=== PATIENT | male | born 1955 | race Caucasian/White ===

== ENCOUNTER 2019-09-27 10:48 | Inpatient (IN) | payer MEDICARE, MEDICAID ==
[2019-09-27] VITALS (7 sets, daily range): BP systolic 129–145; BP diastolic 72–81
[~2019-09-27] VITALS: Ht 162.6 cm; Wt 70.0 kg
[2019-09-27] MEDS ORDERED: MELA5TAB3 PO (11:07)
[2019-09-27] MEDS ORDERED: DOCU100C33 PO (11:07)
[2019-09-27] MEDS ORDERED: TOPI25 PO (11:07)
[2019-09-27] MEDS ORDERED: FOLI1TAB85 PO (11:07)
[2019-09-27] MEDS ORDERED: TEMA15CA PO (11:07)
[2019-09-27] MEDS ORDERED: CIPR500S5 PO (11:07)
[2019-09-27] MEDS ORDERED: AMOX1TAB15 PO (11:07)
[2019-09-27 11:46] LABS: BASOPHILS % (AUTO) 0.8 % (0.0-2.0); MEAN CORPUSCULAR HGB CONC 32.7 G/dL (31.0-37.0); MEAN CORPUSCULAR VOLUME 86 fL (80-100); MONOCYTES # (AUTO) 0.5 K/uL (0.1-1.0); MONOCYTES % (AUTO) 5.2 % (2.0-9.0); NEUTROPHILS # (AUTO) 7.8 K/uL (1.8-7.7); PLATELET COUNT (AUTO) 380 K/uL (150-450); RED BLOOD CELL COUNT(AUTO) 2.17 MIL/uL (4.50-5.90); RED CELL DISTRIBUTION WIDTH 15.5 % (11.5-14.5)
[2019-09-27 11:47] LABS: HEMOGLOBIN 6.1 g/dL (13.5-17.5)
[2019-09-27 11:48] LABS: HEMATOCRIT 18.5 % (41-53)
[2019-09-27 12:52] LABS: POTASSIUM 4.7 mmol/L (3.5-5.1)
[2019-09-27 12:53] LABS: ALBUMIN 1.8 g/dL (3.4-5.0); BILIRUBIN,TOTAL 0.3 mg/dL (0.1-1.0); CALCIUM, TOTAL 7.8 mg/dL (8.8-10.5); TOTAL PROTEIN, SERUM 7.6 g/dL (6.4-8.2)
[2019-09-27 13:13] LABS: CREATININE 9.54 mg/dL (0.60-1.30)
[2019-09-27] MEDS ORDERED: ONDANSETRON HCL 4 MG/2 ML VIAL IVP PRN ×2 (13:30→21:45)
[2019-09-27] MEDS ORDERED: 0.9% SODIUM CHLORIDE 10 ML SYRINGE IVP PRN ×2 (13:30→21:45)
[2019-09-27] MEDS ORDERED: ACETAMINOPHEN 325 MG TABLET PO PRN (13:30)
[2019-09-27] MEDS ORDERED: ZOLPIDEM TARTRATE 5 MG TABLET PO PRN (21:45)
[2019-09-27] MEDS: MELATONIN 5 MG TABLET PO SCH (22:35)
[2019-09-27] MEDS: TEMAZEPAM 15 MG CAPSULE PO SCH (22:35)
[2019-09-27] MEDS: ACETAMINOPHEN 325 MG TABLET PO PRN (22:36)
[2019-09-28] VITALS (7 sets, daily range): BP systolic 121–141; BP diastolic 61–79
[2019-09-28 07:10] LABS: BASOPHILS % (AUTO) 0.8 % (0.0-2.0); EOSINOPHILS % (AUTO) 3.2 % (1.0-6.0); HEMOGLOBIN 7.5 g/dL (13.5-17.5); LYMPHOCYTES # (AUTO) 1.2 K/uL (1.0-4.8); LYMPHOCYTES % (AUTO) 14.6 % (22.0-44.0); MEAN CORPUSCULAR HGB CONC 32.5 G/dL (31.0-37.0); MEAN CORPUSCULAR VOLUME 86 fL (80-100); MONOCYTES # (AUTO) 0.5 K/uL (0.1-1.0); MONOCYTES % (AUTO) 5.8 % (2.0-9.0); NEUTROPHILS # (AUTO) 6.4 K/uL (1.8-7.7); NEUTROPHILS % (AUTO) 75.6 % (40.0-70.0); PLATELET COUNT (AUTO) 373 K/uL (150-450); RED BLOOD CELL COUNT(AUTO) 2.68 MIL/uL (4.50-5.90); RED CELL DISTRIBUTION WIDTH 15.5 % (11.5-14.5)
[2019-09-28 07:42] LABS: ALBUMIN 1.7 g/dL (3.4-5.0); BILIRUBIN,TOTAL 0.4 mg/dL (0.1-1.0); CREATININE 11.1 mg/dL (0.60-1.30); MAGNESIUM 2.4 mg/dL (1.80-2.40); POTASSIUM 5.3 mmol/L (3.5-5.1); TOTAL PROTEIN, SERUM 7.4 g/dL (6.4-8.2)
[2019-09-28] MEDS: PANTOPRAZOLE SODIUM 40 MG DR TABLET PO SCH (08:49)
[2019-09-28] MEDS: VITAMIN B COMP/VIT C/FOLIC ACID CAPSULE PO SCH (08:49)
[2019-09-28] MEDS: TOPIRAMATE 25 MG TABLET PO SCH (08:49)
[2019-09-28] MEDS ORDERED: CIPR-278 PO (11:46)
[2019-09-28] MEDS: TEMAZEPAM 15 MG CAPSULE PO SCH (20:01)
[2019-09-28] MEDS: MELATONIN 5 MG TABLET PO SCH (20:02)
[2019-09-28] MEDS: ACETAMINOPHEN 325 MG TABLET PO PRN (20:03)
[2019-09-29 04:13] VITALS: BP 142/72
[2019-09-29 07:18] VITALS: BP 143/73
[2019-09-29 07:49] LABS: BASOPHILS % (AUTO) 0.9 % (0.0-2.0); EOSINOPHILS % (AUTO) 3.5 % (1.0-6.0); HEMATOCRIT 22.6 % (41-53); HEMOGLOBIN 7.4 g/dL (13.5-17.5); LYMPHOCYTES # (AUTO) 1.6 K/uL (1.0-4.8); LYMPHOCYTES % (AUTO) 16.8 % (22.0-44.0); MEAN CORPUSCULAR HGB CONC 32.9 G/dL (31.0-37.0); MEAN CORPUSCULAR VOLUME 85 fL (80-100); MONOCYTES # (AUTO) 0.5 K/uL (0.1-1.0); MONOCYTES % (AUTO) 5.4 % (2.0-9.0); NEUTROPHILS # (AUTO) 6.8 K/uL (1.8-7.7); NEUTROPHILS % (AUTO) 73.4 % (40.0-70.0); PLATELET COUNT (AUTO) 377 K/uL (150-450); RED BLOOD CELL COUNT(AUTO) 2.65 MIL/uL (4.50-5.90); RED CELL DISTRIBUTION WIDTH 15.2 % (11.5-14.5)
[2019-09-29 08:11] LABS: CALCIUM, TOTAL 7.8 mg/dL (8.8-10.5); CREATININE 13.37 mg/dL (0.60-1.30)
[2019-09-29] MEDS: TOPIRAMATE 25 MG TABLET PO SCH (08:23)
[2019-09-29] MEDS: VITAMIN B COMP/VIT C/FOLIC ACID CAPSULE PO SCH (08:23)
[2019-09-29] MEDS: PANTOPRAZOLE SODIUM 40 MG DR TABLET PO SCH (08:23)
[2019-09-29] MEDS: EPOETIN ALFA 10,000 UNITS/ML VIAL SQ SCH (08:24)
[2019-09-29 08:29] LABS: POTASSIUM 6.1 mmol/L (3.5-5.1)
[2019-09-29 11:06] VITALS: BP 131/68
[2019-09-29] MEDS ORDERED: CALCIUM GLUCONATE 1,000 MG in DEXTROSE 5%-WATER 50 ML IV ONE (11:15)
[2019-09-29] MEDS ORDERED: CALCIUM GLUCONATE 100 MG/ML 10 ML IVP ONE (11:30)
[2019-09-29] MEDS ORDERED: SODIUM CHLORIDE 0.9% 2,000 ML ONE (12:40)
[2019-09-29] MEDS ORDERED: SODIUM CHLORIDE 0.9% 250 ML IV ONE (15:32)
[2019-09-29] MEDS: SOD FERRIC GLUC COMPLX/SUCROSE 125 MG in SODIUM CHLORIDE 0.9% 100 ML IV SCH (17:00)
[2019-09-29] MEDS: ACETAMINOPHEN 325 MG TABLET PO PRN ×2 (17:01→23:33)
[2019-09-29 19:10] VITALS: BP 132/69
[2019-09-29] MEDS: TEMAZEPAM 15 MG CAPSULE PO SCH (21:25)
[2019-09-29] MEDS: MELATONIN 5 MG TABLET PO SCH (21:25)
[2019-09-29 23:54] VITALS: BP 138/78
[2019-09-30 04:30] VITALS: BP 136/78
[2019-09-30 07:43] LABS: BASOPHILS % (AUTO) 0.5 % (0.0-2.0); EOSINOPHILS % (AUTO) 4.5 % (1.0-6.0); HEMATOCRIT 23.3 % (41-53); HEMOGLOBIN 7.7 g/dL (13.5-17.5); LYMPHOCYTES # (AUTO) 1.3 K/uL (1.0-4.8); LYMPHOCYTES % (AUTO) 14.7 % (22.0-44.0); MEAN CORPUSCULAR HEMOGLOBIN 28.3 pg (26.0-34.0); MEAN CORPUSCULAR HGB CONC 33.3 G/dL (31.0-37.0); MEAN CORPUSCULAR VOLUME 85 fL (80-100); MONOCYTES # (AUTO) 0.6 K/uL (0.1-1.0); MONOCYTES % (AUTO) 6.3 % (2.0-9.0); NEUTROPHILS # (AUTO) 6.5 K/uL (1.8-7.7); PLATELET COUNT (AUTO) 356 K/uL (150-450); RED BLOOD CELL COUNT(AUTO) 2.74 MIL/uL (4.50-5.90); RED CELL DISTRIBUTION WIDTH 15.5 % (11.5-14.5)
[2019-09-30 08:02] VITALS: BP 133/80
[2019-09-30 08:02] LABS: CALCIUM, TOTAL 8.5 mg/dL (8.8-10.5); CREATININE 8.44 mg/dL (0.60-1.30); POTASSIUM 4.8 mmol/L (3.5-5.1)
[2019-09-30] MEDS: TOPIRAMATE 25 MG TABLET PO SCH (08:04)
[2019-09-30] MEDS: VITAMIN B COMP/VIT C/FOLIC ACID CAPSULE PO SCH (08:04)
[2019-09-30] MEDS: PANTOPRAZOLE SODIUM 40 MG DR TABLET PO SCH (08:04)
[2019-09-30] MEDS: SOD FERRIC GLUC COMPLX/SUCROSE 125 MG in SODIUM CHLORIDE 0.9% 100 ML IV SCH (12:37)
[2019-09-30 16:57] VITALS: BP 136/76
[2019-09-30 20:21] VITALS: BP 132/72
[2019-09-30] MEDS: MELATONIN 5 MG TABLET PO SCH (20:59)
[2019-09-30] MEDS: TEMAZEPAM 15 MG CAPSULE PO SCH (20:59)
[2019-10-01 00:05] VITALS: BP 136/78
[2019-10-01 04:27] VITALS: BP 134/80
[2019-10-01 07:45] VITALS: BP 135/78
[2019-10-01] MEDS: VITAMIN B COMP/VIT C/FOLIC ACID CAPSULE PO SCH (09:47)
[2019-10-01] MEDS: TOPIRAMATE 25 MG TABLET PO SCH (09:47)
[2019-10-01] MEDS: PANTOPRAZOLE SODIUM 40 MG DR TABLET PO SCH (09:48)
[2019-10-01 11:25] VITALS: BP 134/72
[2019-10-01 11:52] LABS: BASOPHILS % (AUTO) 0.5 % (0.0-2.0); EOSINOPHILS % (AUTO) 2.7 % (1.0-6.0); HEMATOCRIT 22.5 % (41-53); HEMOGLOBIN 7.4 g/dL (13.5-17.5); LYMPHOCYTES # (AUTO) 1.1 K/uL (1.0-4.8); MEAN CORPUSCULAR HEMOGLOBIN 28.1 pg (26.0-34.0); MEAN CORPUSCULAR HGB CONC 33.1 G/dL (31.0-37.0); MEAN CORPUSCULAR VOLUME 85 fL (80-100); MONOCYTES # (AUTO) 0.5 K/uL (0.1-1.0); MONOCYTES % (AUTO) 5.3 % (2.0-9.0); NEUTROPHILS % (AUTO) 80.5 % (40.0-70.0); PLATELET COUNT (AUTO) 339 K/uL (150-450); RED BLOOD CELL COUNT(AUTO) 2.65 MIL/uL (4.50-5.90); RED CELL DISTRIBUTION WIDTH 15.4 % (11.5-14.5)
[2019-10-01 12:08] LABS: CALCIUM, TOTAL 7.9 mg/dL (8.8-10.5); CREATININE 11.22 mg/dL (0.60-1.30); POTASSIUM 4.7 mmol/L (3.5-5.1)
[2019-10-01] MEDS: SOD FERRIC GLUC COMPLX/SUCROSE 125 MG in SODIUM CHLORIDE 0.9% 100 ML IV SCH (12:28)
[2019-10-01] MEDS: ACETAMINOPHEN 325 MG TABLET PO PRN (12:29)
[2019-10-01 16:25] VITALS: BP 131/74
[2019-10-01] MEDS: MELATONIN 5 MG TABLET PO SCH (20:41)
[2019-10-01] MEDS: TEMAZEPAM 15 MG CAPSULE PO SCH (20:41)
[2019-10-01 21:14] VITALS: BP 152/78
[2019-10-02 00:07] VITALS: BP 139/76
[2019-10-02 04:58] VITALS: BP 139/73
[2019-10-02 07:23] LABS: BASOPHILS % (AUTO) 0.7 % (0.0-2.0); EOSINOPHILS % (AUTO) 2.4 % (1.0-6.0); HEMATOCRIT 21.7 % (41-53); HEMOGLOBIN 7.2 g/dL (13.5-17.5); LYMPHOCYTES % (AUTO) 17.3 % (22.0-44.0); MEAN CORPUSCULAR HEMOGLOBIN 28.3 pg (26.0-34.0); MEAN CORPUSCULAR HGB CONC 33.4 G/dL (31.0-37.0); MEAN CORPUSCULAR VOLUME 85 fL (80-100); MONOCYTES # (AUTO) 0.6 K/uL (0.1-1.0); MONOCYTES % (AUTO) 4.8 % (2.0-9.0); NEUTROPHILS # (AUTO) 8.6 K/uL (1.8-7.7); NEUTROPHILS % (AUTO) 74.8 % (40.0-70.0); PLATELET COUNT (AUTO) 390 K/uL (150-450); RED BLOOD CELL COUNT(AUTO) 2.56 MIL/uL (4.50-5.90); RED CELL DISTRIBUTION WIDTH 15.4 % (11.5-14.5)
[2019-10-02 07:36] LABS: CALCIUM, TOTAL 8.5 mg/dL (8.8-10.5); CREATININE 13.11 mg/dL (0.60-1.30); MAGNESIUM 2.4 mg/dL (1.80-2.40); POTASSIUM 5.9 mmol/L (3.5-5.1)
[2019-10-02 07:41] VITALS: BP 141/77
[2019-10-02] MEDS: TOPIRAMATE 25 MG TABLET PO SCH (07:46)
[2019-10-02] MEDS: VITAMIN B COMP/VIT C/FOLIC ACID CAPSULE PO SCH (07:46)
[2019-10-02] MEDS: PANTOPRAZOLE SODIUM 40 MG DR TABLET PO SCH (07:46)
[2019-10-02] MEDS: EPOETIN ALFA 10,000 UNITS/ML VIAL SQ SCH (07:47)
[2019-10-02] MEDS ORDERED: SODIUM CHLORIDE 0.9% 1,000 ML ONE (08:31)
[2019-10-02] MEDS: SOD FERRIC GLUC COMPLX/SUCROSE 125 MG in SODIUM CHLORIDE 0.9% 100 ML IV SCH (13:00)
[2019-10-02 16:19] VITALS: BP 150/82
[2019-10-02 19:47] VITALS: BP 136/85
[2019-10-02] MEDS: TEMAZEPAM 15 MG CAPSULE PO SCH (21:06)
[2019-10-02] MEDS: MELATONIN 5 MG TABLET PO SCH (21:06)
[2019-10-03 00:15] VITALS: BP 132/78
[2019-10-03 04:12] VITALS: BP 136/79
[2019-10-03] MEDS: ACETAMINOPHEN 325 MG TABLET PO PRN (06:59)
[2019-10-03 08:17] VITALS: BP 140/73
[2019-10-03] MEDS: VITAMIN B COMP/VIT C/FOLIC ACID CAPSULE PO SCH (08:40)
[2019-10-03] MEDS: TOPIRAMATE 25 MG TABLET PO SCH (08:40)
[2019-10-03] MEDS: PANTOPRAZOLE SODIUM 40 MG DR TABLET PO SCH (08:40)
[2019-10-03 09:01] LABS: CALCIUM, TOTAL 8.3 mg/dL (8.8-10.5); CREATININE 9.45 mg/dL (0.60-1.30); MAGNESIUM 1.9 mg/dL (1.80-2.40); PHOSPHORUS 4.3 mg/dL (2.5-4.9); POTASSIUM 4.8 mmol/L (3.5-5.1)
[2019-10-03 11:09] VITALS: BP 137/75
[2019-10-03] MEDS: SOD FERRIC GLUC COMPLX/SUCROSE 125 MG in SODIUM CHLORIDE 0.9% 100 ML IV SCH (13:00)
== END 2019-10-03 16:05 | DRG 811 ==
LOC: EMS 10:51 → 5S 15:17
PROVIDERS: ADMIT Hospitalist; ATTEND Hospitalist
PROC: 30233N1 Transfusion of Nonautologous Red Blood Cells into Peripheral Vein, Percutaneous Approach (ICD-10-PCS; principal; 2019-09-27)
PROC: 5A1D70Z Performance of Urinary Filtration, Intermittent, Less than 6 Hours Per Day (ICD-10-PCS; 2019-09-29)
PROC: 5A1D70Z Performance of Urinary Filtration, Intermittent, Less than 6 Hours Per Day (ICD-10-PCS; 2019-10-02)
DX: D64.9 Anemia, unspecified (principal); N18.6 End stage renal disease; I12.0 Hypertensive chronic kidney disease with stage 5 chronic kidney disease or end stage renal disease; I73.9 Peripheral vascular disease, unspecified; E87.5 Hyperkalemia; Z99.2 Dependence on renal dialysis; Z86.11 Personal history of tuberculosis; Z93.6 Other artificial openings of urinary tract status; Z79.899 Other long term (current) drug therapy
CPT/HCPCS: 83540; 83550; 83735; 84100; 86850; 86900; 86901; 86923; 87040; 87070; 87081; 87086; 87205; 87340; 90935; 93005; J0610; J0885; J2916; J7030; J7050; J7060; P9016